=== PATIENT | female | born 1985 | race Caucasian/White ===

== ENCOUNTER 2023-06-17 20:44 | Emergency (ER) | payer BC ==
[2023-06-17] MEDS ORDERED: Bacitracin 1 PK ONE (22:08)
[2023-06-17] MEDS ORDERED: Sodium Chloride 0.9% 100 ML ONE (22:09)
[2023-06-17] MEDS ORDERED: Morphine 4 MG/ML VIAL ONE (22:09)
[2023-06-17] MEDS ORDERED: Boostrix 0.5 ML (Tdap) VIAL (>/=7 yrs of age) ONE (22:09)
[2023-06-17] MEDS ORDERED: cefTRIAXone (ROCEPHIN) 2 GM VIAL ONE (22:09)
[2023-06-17] MEDS ORDERED: Ondansetron PF 4 MG/2 ML Vial ONE (22:09)
[2023-06-17] MEDS ORDERED: Proparacaine 0.5% Opth 15 ML BOT ONE (22:09)
[2023-06-17 22:12] LABS: #Eosinphils 0.1 thou/uL (0.0-0.7); #Monocytes 0.5 thou/uL (0.11-0.59); #Neutrophils 7.1 thou/uL (1.40-6.50); %Basophils 0.4 % (0.0-1.0); %Eosinophils 1.2 % (0.0-10.0); %Lymphocytes 13.8 % (21.0-51.0); %Monocytes 5.8 % (0.0-10.0); %Neutrophils 78.6 % (42.0-75.0); Hematocrit 36.2 % (36.0-47.0); Mean Corpuscular HGB CONC 35.9 g/dL (32.0-36.0); Mean Corpuscular Volume 86.2 fl (78.0-98.0); Platelet Count 228 10x3/uL (130-400); RBC Distribution Width 12.1 % (11.5-14.5)
[2023-06-17 22:24] LABS: BHCG - Serum Negative (NEGATIVE); Pregs Control Background? CLEAR/WHITE (CLR/WHITE); Pregs Control Bar Appear? YES (CONTROL BAR)
[2023-06-17 22:28] LABS: INR-International Normal Ratio 1.1; Prothrombin Time 14.2 sec (12.0-14.7)
[2023-06-17 22:29] LABS: PTT 29.8 sec (22.9-36.1)
[2023-06-17 22:30] LABS: ALT (SGPT) 12 U/L (8-55); AST (SGOT) 15 U/L (5-34); Albumin 4.1 g/dL (3.5-5.0); Alkaline Phosphatase 51 U/L (40-110); Anion Gap 11 mmol/L (10-20); BUN (Urea Nitrogen) 17 mg/dL (7.0-18.7); Bilirubin, Total 0.4 mg/dL (0.2-1.2); Calc. Creatinine Clearance 0 mL/min (70-130); Carbon Dioxide 24 mmol/L (22-29); Chloride 105 mmol/L (98-107); Estimated GFR 76; Globulin 2.8 g/dL (2.4-3.5); Glucose 129 mg/dL (70-105); Potassium 3.8 mmol/L (3.5-5.1); Protein, Total 6.9 g/dL (6.0-8.3); Sodium 136 mmol/L (136-145)
[2023-06-18] MEDS ORDERED: Bacitracin 1 PK ONE (00:08)
[2023-06-18] MEDS ORDERED: Lidocaine 1% PF 5 ML VIAL ONE (00:09)
[2023-06-18] MEDS ORDERED: Morphine 4 MG/ML VIAL ONE (00:09)
== END 2023-06-18 01:57 | disposition home or self-care (01) ==
LOC: ERS 20:44
DX: S02.2XXA Fracture of nasal bones, initial encounter for closed fracture (principal); S02.31XA Fracture of orbital floor, right side, initial encounter for closed fracture; S01.111A Laceration without foreign body of right eyelid and periocular area, initial encounter; W21.03XA Struck by baseball, initial encounter
CPT/HCPCS: 12002; 36415; 70450; 70486; 80053; 84703; 85025; 85610; 85730; 90471; 90715; 96365; 96375; 96376; J0696; J2270; J2405; J3490